=== PATIENT | male | born 1990 | race Two or more races ===

== ENCOUNTER 2018-01-21 04:06 | Emergency (ER) | payer OTHER ==
--- NOTE | 2018-01-21 04:52 | ED PDOC ---
HPI: Psych/Substance Abuse Time Seen by Provider: 01/21/18 04:11 Chief Complaint (Nursing): Alcohol Ingestion Chief Complaint (Provider): ETOH Intoxication ED Caveat: Intoxicated History Per: Patient History/Exam Limitations: intoxication Onset/Duration Of Symptoms: Mins (just prior to arrival) Current Symptoms Are (Timing): Still Present Additional Complaint(s): 27 yo male, brought in by EMS, presents to the ED for alcohol intoxication, onset of just prior to arrival. Patient states that he was out drinking tonight and his friends were supposed to call him an Uber but the Uber never showed up. [place] police found him and brought him to the ED. Patient history and review of systems is limited because the patient is an unreliable historian and not directable. Past Medical History Reviewed: Historical Data, Nursing Documentation, Vital Signs, Unable To Obtain (patient is intoxicated and an unreliable historian) Vital Signs: Last Vital Signs Temp 97.2 F L 01/21/18 04:24 Pulse 132 H 01/21/18 04:24 Resp 16 01/21/18 04:24 BP 180/95 H 01/21/18 04:24 Pulse Ox 97 01/21/18 04:24 - Family History Family History: States: Unknown Family Hx - Allergies Allergies/Adverse Reactions: Allergies Allergy/AdvReac Type Severity Reaction Status Date / Time No Known Allergies Allergy Verified 01/21/18 04:32 Review of Systems ROS Statement: Except As Marked, All Systems Reviewed And Found Negative Review Of Systems: ROS cannot be obtained secondary to pt's inabilty to answer questions. Physical Exam - Reviewed Nursing Documentation Reviewed: Yes Vital Signs Reviewed: Yes - Physical Exam Appears: Positive for: Well, Non-toxic, No Acute Distress Head Exam: Positive for: ATRAUMATIC, NORMAL INSPECTION, NORMOCEPHALIC Skin: Positive for: Normal Color, Warm, DRY Eye Exam: Positive for: EOMI, Normal appearance, PERRL ENT: Positive for: Normal ENT Inspection Neck: Positive for: Normal, Painless ROM Cardiovascular/Chest: Positive for: Regular Rate, Rhythm. Negative for: Murmur Respiratory: Positive for: Normal Breath Sounds. Negative for: Respiratory Distress Gastrointestinal/Abdominal: Positive for: Normal Exam, Soft. Negative for: Tenderness Back: Positive for: Normal Inspection Extremity: Positive for: Normal ROM. Negative for: Pedal Edema, Deformity Neurologic/Psych: Positive for: Alert, Oriented, Other (speech is slurred). Negative for: Motor/Sensory Deficits - Laboratory Results Result Diagrams: 01/21/18 05:10 01/21/18 05:10 - ECG O2 Sat by Pulse Oximetry: 97 (RA) Pulse Ox Interpretation: Normal - Critical Care Total Time (In Min): 30 Medical Decision Making Medical Decision Making: Time: --04:32 Impression: --ETOH Intoxication Plan: --Alcohol Serum --Labs --Drug Screen, Urine --Haldol 5mg IM --Ativan 2mg --Accucheck Reassess --05:05 patient becomes increasingly agitated and uncooperative. For the safety of the staff and patient, 4 point restraints, Haldol, and Ativan were ordered. --07:00 Patient to be signed out to Dr. Isatu Browning pending clinical sobriety. Scribe Attestation: Documented by Khari Davila acting as a scribe for Javier Taylor MD. Provider Attestation: All medical record entries made by the Scribe were at my direction and personally dictated by me. I have reviewed the chart and agree that the record accurately reflects my personal performance of the history, physical exam, medical decision making, and the department course for this patient. I have also personally directed, reviewed, and agree with the discharge instructions and disposition. Disposition - Clinical Impression Clinical Impression: Alcohol intoxication - Patient ED Disposition Is Patient to be Admitted: Transfer of Care Discussed With : Isatu Browning Doctor Will See Patient In The: ED - Disposition Disposition: Transfer of Care Disposition Time: 07:00 Condition: STABLE Additional Instructions: FOLLOW-UP WITH PMD AND DENTIST. Instructions: Alcohol Abuse and Alcoholism (DC), Your Choices for Tooth Replacement Forms: [employer] ([place]), [facility] ED School/Work Excuse Patient Signed Over To: Isatu Browning
[2018-01-21] MEDS ORDERED: DiphenhydrAMINE 50 mg/ml Inj IM STA (05:09)
[2018-01-21 05:13] LABS: BASO % 0.4 % (0.0-2.0); EOS # 0.2 K/uL (0.0-0.7); EOS % 1.7 % (0.0-4.0); HEMOGLOBIN 17.3 g/dL (12.0-18.0); LYMPH # 2.8 K/uL (1.0-4.3); LYMPH % 28.2 % (20.0-40.0); MEAN CELL VOLUME 94.3 fl (80.0-94.0); MEAN CORPUSCULAR HEMOGLOBIN 32.6 pg (27.0-31.0); MEAN CORPUSCULAR HGB CONC 34.6 g/dL (33.0-37.0); MEAN PLATELET VOLUME 9.8 fl (7.2-11.7); MONO # 0.5 K/uL (0.0-0.8); NEUT # 6.3 K/uL (1.8-7.0); NEUT % 64.7 % (50.0-75.0); NRBC % 0.3 % (0.0-0.0); RBC 5.3 Mil/uL (4.40-5.90); RED CELL DISTRIBUTION WIDTH 12.6 % (11.5-14.5); WHITE BLOOD COUNT 9.8 K/uL (4.8-10.8)
[2018-01-21 07:02] LABS: ALB/GLOB RATIO 1.6 (1.0-2.1); ALBUMIN 5.2 g/dL (3.5-5.0); ALT/SGPT 27 U/L (21-72); AST/SGOT 35 U/L (17-59); BLOOD UREA NITROGEN 11 mg/dl (9-20); CALCIUM 9.8 mg/dL (8.4-10.2); GFR AFRICAN-AMERICAN > 60; GFR NON-AFRICAN AMERICAN > 60
[2018-01-21 07:10] LABS: BARBITURATES, UR NEGATIVE (NEGATIVE); BENZODIAZEPINES, UR NEGATIVE (NEGATIVE); OPIATES, UR NEGATIVE (NEGATIVE); PHENCYCLIDINE, UR NEGATIVE (NEGATIVE)
--- NOTE | 2018-01-21 07:12 | ED PDOC ---
- Laboratory Results Result Diagrams: 01/21/18 05:10 01/21/18 05:10 - ECG O2 Sat by Pulse Oximetry: 99 Pulse Ox Interpretation: Normal Medical Decision Making Medical Decision Making: Case signed out to me by Dr. Taylor. Patient is a 27 y/o male, who presents to the emergency department for alcohol intoxication, prior to arrival. Patient is in no acute distress and currently pending sobriety. 12:5- Pt AAOX3, steady gait. Scribe Attestation: Documented by Bianca Fernández acting as a scribe for Isatu Browning MD. Scribe Attestation: All medical record entries made by the Scribe were at my direction and personally dictated by me. I have reviewed the chart and agree that the record accurately reflects my personal performance of the history, physical exam, medical decision making, and the department course for this patient. I have also personally directed, reviewed, and agree with the discharge instructions and disposition. Disposition - Clinical Impression Clinical Impression: Alcohol intoxication, Tooth avulsion - POA Present On Arrival: None - Disposition Disposition: Routine/Home Disposition Time: 12:51 Condition: STABLE Additional Instructions: FOLLOW-UP WITH PMD AND DENTIST. Instructions: Alcohol Abuse and Alcoholism (DC), Your Choices for Tooth Replacement Forms: [employer] ([place]ian)
[2018-01-21 08:51] VITALS: RESP 18
[2018-01-21] MEDS ORDERED: Potassium Chloride 20 mEq ER Tab PO STA (12:50)
[2018-01-21 13:06] VITALS: BP 121/70; PULSE 96; TEMP 97.4
[2018-01-22 03:57] VITALS: O2SAT 97
== END 2018-01-21 13:08 | disposition home or self-care (01) ==
LOC: H.ER 04:06
DX: F10.129 Alcohol abuse with intoxication, unspecified (principal); S03.2XXA Dislocation of tooth, initial encounter; Y92.89 Other specified places as the place of occurrence of the external cause; R45.1 Restlessness and agitation
CPT/HCPCS: 80053; 80320; 80324; 80345; 80346; 80349; 80353; 80358; 80361; 83992; 85025; 96372; 99284; J1200; J1630; J2060